=== PATIENT | female | born 1960 | race Caucasian/White ===

== ENCOUNTER 2019-12-05 11:37 | Day surgery (SDC) | payer OTHER, SELFPAY ==
[2019-12-05] VITALS (13 sets, daily range): BP systolic 95–136; BP diastolic 63–83; PULSE 49–78; RESP 16–18; TEMP 36.6–36.8; O2SAT 93–100; BMI 24.5
--- NOTE | 2019-12-05 11:50 | ED_ITS ---
Entered by Yuliya Krause, acting as scribe for HPI - Abdominal Pain General: Chief Complaint: Abdominal Pain Stated Complaint: Abd pain Time Seen by Provider: 12/05/19 11:49 Source: patient Mode of arrival: ambulatory Limitations: no limitations History of Present Illness: HPI narrative: 59 yo Female presents to ED with complaint of abdominal pain. Pt states that her pain is in her right lower abdomen. Pt states that her pain started on and has worsened since then. Pt states pain is now more localized to the right lower quadrant. Pt was seen at the urgent care clinic and sent to the ED because she had some blood in her urine and needed at CT scan. MD elicited complaint: abdominal pain Onset (ago): day(s) (2 ()) Location: RLQ Pain scale (0-10): 5 Quality: aching Associated Symptoms: Denies diarrhea, fever(s), nausea and vomiting Related Data: Date of Last Menstrual Period: 12/02/14 Review of Systems General: Reports: 10 or more systems reviewed and unremarkable except in HPI and below Const: Denies: fever GI: Reports: abdominal pain; Denies: nausea, vomiting or diarrhea PFSH ED PFSH: Statuses (acute, chronic, etc) shown below reflect problem list status as previously entered and may not be historically accurate Medical History (Updated 12/05/19 @ 14:34 by Yoni Allen DO) No pertinent past medical history (Acute) Social History Smoking and tobacco status: never smoked Female Reproductive History: Date of last menstrual period: 12/02/14 Physical Exam Const: COMMON NORMALS: no apparent distress, average body habitus, oriented x3, no limitations, healthy appearing, alert and well nourished HENMT: COMMON NORMALS: normocephalic, head/scalp atraumatic, hearing grossly normal bilaterally, external ears normal, EAC's normal, TM's normal bilaterally, external nose normal, nasal mucous membranes and turbinates normal, moist oral mucous membranes, oropharynx normal, dentition normal and gingiva normal HEAD & SCALP: normocephalic and atraumatic NOSE: external nose normal and nasal mucous membranes and turbinates normal EXTERNAL EAR: Yes external ears normal EXTERNAL AUDITORY CANAL: EAC's normal TYMPANIC MEMBRANE: TM's normal bilaterally Eye: COMMON NORMALS: PERRL, EOMs intact bilaterally, conjunctivae normal, no scleral icterus, no papilledema, normal visual rosenbaum by confrontation and fundi normal bilaterally CONJUNCTIVA: Yes conjunctivae normal PUPIL: Yes PERRL DIRECT OPHTHALMOSCOPY: Yes no papilledema and Yes fundi normal bilaterally Neck/C-Spine: COMMON NORMALS: full ROM, no lymphadenopathy, supple, no men ingeal signs, no JVD, thyroid normal and no carotid bruits THYROID: thyroid normal Chest: COMMONS NORMALS: inspection of chest normal and palpation of chest normal Resp: COMMON NORMALS: normal respiratory effort, no retractions, no use of accessory muscles, clear to auscultation bilaterally and percussion normal AUSCULTATION: clear to auscultation bilaterally PERCUSSION: percussion normal Cardio: COMMON NORMALS: no JVD, regular rate, regular rhythm, S1 normal heart sound, S2 normal heart sound, no gallops, no clicks, no murmurs, no rub and peripheral pulses 2+ throughout RATE: regular rate RHYTHM: regular rhythm HEART SOUNDS: S1 normal and S2 normal PERIPHERAL PULSES: pulses 2+ throughout GI: COMMON NORMALS: soft to palpation, no hepatosplenomegaly, no masses and no bruits; negative for normal to inspection, nondistended, normoactive bowel sounds and negative for non-tender AUSCULTATION: Yes hypoactive bowel sounds PALPATION: Yes soft, Yes tender Details: RLQ and Yes no hepatosplenomegaly : COMMON NORMALS: Yes no CVA tenderness and Yes external appearance normal BLADDER/KIDNEY EXAM: Yes no CVA tenderness Back/Pelvis: COMMON NORMALS: no CVA tenderness, thoracic and lumbar spine normal to inspection, no thoracic nor lumbar tenderness, thoraco-lumbar ROM normal and straight leg raise negative bilaterally Extremity: COMMON NORMALS: normal to inspection, full ROM, normal capillary refill, no joint enlargement, no clubbing, cyanosis or edema, no calf tenderness and no pedal edema Neuro: COMMON NORMALS: oriented x3 SENSORIUM/ORIENTATION: Yes alert MENINGEAL SIGNS: Yes no meningeal signs Skin: COMMON NORMALS: no rashes or lesions noted, no wounds, skin turgor normal, no jaundice, no petechiae and no mottling GENERAL SKIN EXAM: no rashes or lesions noted and turgor normal Procedures Intubation Mg Given: 20 Mg Given: 200 Course Vital Signs: Vital signs: Vital Signs Temperature 98.2 F 12/05/19 11:41 Pulse Rate 70 12/05/19 12:52 Respiratory Rate 16 12/05/19 12:52 Blood Pressure 118/78 12/05/19 12:52 Pulse Oximetry 96 12/05/19 12:52 MDM - Abdominal Pain Lab Data: Labs: Lab Results 12/05/19 12/05/19 12/05/19 Range/Units 12:24 12:24 12:24 WBC 10.4 H (4.0-10.0) 10^3/ uL RBC 4.78 (4.1-5.3) 10^6/u L Hgb 14.1 (11.5-15.3) g/dL Hct 43.4 (37.0-47.0) % MCV 90.8 (81-99) fL MCH 29.5 (28.0-34.0) pg MCHC 32.5 (30.0-36.0) g/dL RDW 13.2 (12.1-15.1) % Plt Count 232 (130-400) 10^3/c mm MPV 11.3 H (7.4-10.4) fL Neut % (Auto) 73.3 % Lymph % (Auto) 19.1 % [place] % (Auto) 5.9 % Eos % (Auto) 0.8 % Baso % (Auto) 0.4 % Neut # (Auto) 7.6 (1.8-7.7) 10^3/u L Lymph # (Auto) 2.0 (0.8-4.8) 10^3/u L [place] # (Auto) 0.6 (0.2-0.9) 10^3/u L Eos # (Auto) 0.1 (0.0-0.8) 10^3/u L Baso # (Auto) 0.0 (0.0-0.1) 10^3/u L Nucleated RBC % (a uto) 0 % Nucleated RBCs # 0.0 /100WBC Sodium 135 L (136-145) mmol/L Potassium 4.2 (3.5-5.1) mmol/L Chloride 96 L (98-107) mmol/L Carbon Dioxide 26 (22-29) mmol/L Anion Gap 17.2 (5-19) BUN 16 (8-23) mg/dL Creatinine 0.8 (0.5-0.9) mg/dL GFR Calculation 72.9 L (90-130) mL/min Glucose 99 (74-106) mg/dL Calcium 10.3 H (8.8-10.2) mg/Dl Total Bilirubin 0.5 (0.15-1.2) mg/dL AST 21 (0-32) U/L ALT 25 (0-33) U/L Alkaline Phosphata se 107 H (35-105) IU/L Total Protein 7.8 (6.6-8.7) g/dL Albumin 4.5 (3.5-5.2) g/dL Globulin 3.3 (1.3-4.6) g/dL Lipase 12 L (13-60) U/L Discharge Plan Discharge Patient Disposition: Admitted As Inpatient Clinical Impression: Acute appendicitis Condition: Stable Prescriptions: No Action atorvastatin [Lipitor] 10 mg tablet 10 mg PO ONCE RF: 0 Referrals: Simba Streeter [Family Provider] - Connie Mitchell MD [Primary Care Provider] - Patient Instructions: Appendicitis (GEN) Coding Level of Care Code ED Commercial Loan Specialist for Chg Fwd Exam Problem Focused The documentation recorded by the Jimi harris Carmen, accurately reflects the service I personally performed and the decisions made by , Yoni Allen, DO
--- NOTE | 2019-12-05 11:56 | PC.NURSE ---
Patient was seen in urgent care today and was noted to have blood in urine. Lab to send copy to hospital. Patient states was sent here for evaluation.
--- NOTE | 2019-12-05 12:02 | CTR_ITS ---
PROCEDURE INFORMATION: Exam: CT Abdomen And Pelvis With Contrast Exam date and time: 12/05/2019 12:09 PM Age: 59 years old Clinical indication: Abdominal pain; Localized; Right lower quadrant (rlq); Additional info: Rlq abd pain TECHNIQUE: Imaging protocol: Computed tomography of the abdomen and pelvis with intravenous contrast. Total DLP: 876.08 mGy-cm Radiation optimization: All CT scans at this facility use at least one of these dose optimization techniques: automated exposure control; mA and/or kV adjustment per patient size (includes targeted exams where dose is matched to clinical indication); or iterative reconstruction. Contrast material: OMNI 300; Contrast volume: 95 ml; Contrast route: L AC IV; COMPARISON: No relevant prior studies available. FINDINGS: Liver: Normal. No mass. Gallbladder and bile ducts: Normal. No calcified stones. No ductal dilation. Pancreas: Normal. No ductal dilation. Spleen: Normal. No splenomegaly. Adrenals: Normal. No mass. Kidneys and ureters: Normal. No hydronephrosis. Stomach and bowel: Unremarkable. No obstruction. No mucosal thickening. Appendix: Proximal half of the appendix is enlarged measuring 11 mm in diameter. Prominent proximal appendiceal wall measuring 3-4 mm thick with robust enhancement. Appearance worrisome for early/mild appendicitis. No significant surrounding inflammation or fluid at this time. Intraperitoneal space: Unremarkable. No free air. No significant fluid collection. Vasculature: Unremarkable. No abdominal aortic aneurysm. Lymph nodes: Unremarkable. No enlarged lymph nodes. Bladder: Unremarkable as visualized. Reproductive: Unremarkable as visualized. Bones/joints: L5-S1 degenerative disc disease, chronic. Soft tissues: Unremarkable. CT/CT abdomen pelvis w con* [id number] IMPRESSION: 1)Proximal half of the appendix is enlarged measuring 11 mm in diameter. Prominent proximal appendiceal wall measuring 3-4 mm thick with robust enhancement. Appearance worrisome for early/mild appendicitis. Radiation Dose CTDIVOL = (mGy): DLP = 876.08 (mGy-cm)
[2019-12-05] MEDS: sodium chloride 0.9% 1,000 ML 999 ML IV (12:45)
[2019-12-05 13:07] LABS: Basophils % 0.4 %; Eosinophils # 0.1 10^3/uL (0.0-0.8); Eosinophils % 0.8 %; Hematocrit 43.4 % (37.0-47.0); Hemoglobin 14.1 g/dL (11.5-15.3); Lymphocytes % 19.1 %; Mean Corpuscular HGB Conc 32.5 g/dL (30.0-36.0); Mean Corpuscular Hemoglobin 29.5 pg (28.0-34.0); Mean Corpuscular Volume 90.8 fL (81-99); Mean Platelet Volume 11.3 fL (7.4-10.4); Monocytes # 0.6 10^3/uL (0.2-0.9); Monocytes % 5.9 %; Neutrophils # 7.6 10^3/uL (1.8-7.7); Neutrophils % 73.3 %; Nucleated Red Blood Cells % 0 %; Platelet Count 232 10^3/cmm (130-400); Red Blood Count 4.78 10^6/uL (4.1-5.3); Red Cell Distribution Width 13.2 % (12.1-15.1); White Blood Count 10.4 10^3/uL (4.0-10.0)
[2019-12-05 13:14] LABS: Lipase 12 U/L (13-60)
[2019-12-05 13:15] LABS: Alanine Aminotransferase 25 U/L (0-33); Albumin Level 4.5 g/dL (3.5-5.2); Alkaline Phosphatase 107 IU/L (35-105); Anion Gap 17.2 (5-19); Aspartate Amino Transferase 21 U/L (0-32); Blood Urea Nitrogen 16 mg/dL (8-23); Calcium 10.3 mg/Dl (8.8-10.2); Carbon Dioxide 26 mmol/L (22-29); Chloride 96 mmol/L (98-107); Globulin 3.3 g/dL (1.3-4.6); Glomerular Filtration Rate 72.9 mL/min (90-130); Glucose 99 mg/dL (74-106); Potassium 4.2 mmol/L (3.5-5.1); Sodium 135 mmol/L (136-145); Total Bilirubin 0.5 mg/dL (0.15-1.2); Total Protein 7.8 g/dL (6.6-8.7)
[2019-12-05] MEDS: ondansetron 2 mg/ML SDV 2 mL 4 MG IVP (14:40)
[2019-12-05] MEDS: morphine 4 mg/mL SDV 1 mL IVP (14:45)
--- NOTE | 2019-12-05 15:25 | ANES.PREANES ---
Pre-Anesthetic Assessment Pre-Anesthetic Assessment: Height/Weight: Height 1.74 m Weight 74.389 kg Temp Pulse Resp BP Pulse Ox 98.2 F 67 18 132/82 95 12/05/19 11:41 12/05/19 15:12 12/05/19 14:45 12/05/19 15:12 12/05/19 15:12 Proposed Procedure: Operation Date: 12/05/19 16:30 Proposed Procedures p Laparoscopic Appendectomy(Not Applicable) - Evan Pichardo MD Last intake: Intake Last Liquid Date 12/05/19 Last Liquid Time 08:30 Last Solid Date 12/05/19 Last Solid Time 08:30 Social: Social History: No alcohol and No tobacco Exam: Pre-Anes Outpt Exam: alert, oriented x 3, clear to auscultation bilaterally and regular rate & rhythm Airway: Submandibular: WNL Cervical ROM: WNL MP: 1 Dentition: Full History/ROS: No significant history except as noted Pulmonary: Pulmonary: None reported CV/HEM: CV/HEM: None reported Anesthetic Plan: ASA status: E Anesthesia: Anesthesia Evaluation and General Risk of > 500 ml blood loss (7ml/kg in children): No PFSH Anesthesia PFSH: Medical History (Updated 12/05/19 @ 15:38 by Evan Pichardo MD) Acute appendicitis (Acute) Hypercholesterolemia (Acute) Surgical History (Updated 12/05/19 @ 15:32 by Evan Pichardo MD) H/O section (Acute) H/O colonoscopy (Acute) Social History Smoking and tobacco status: never smoked Female Reproductive History: Date of last menstrual period: 12/02/14 Data Anesthesia Labs: Other Labs: Laboratory Results - last 48 hr 12/05/19 12/05/19 12/05/19 12:24 12:24 12:24 WBC 10.4 H RBC 4.78 Hgb 14.1 Hct 43.4 MCV 90.8 MCH 29.5 MCHC 32.5 RDW 13.2 Plt Count 232 MPV 11.3 H Neut % (Auto) 73.3 Lymph % (Auto) 19.1 [place] % (Auto) 5.9 Eos % (Auto) 0.8 Baso % (Auto) 0.4 Neut # (Auto) 7.6 Lymph # (Auto) 2.0 [place] # (Auto) 0.6 Eos # (Auto) 0.1 Baso # (Auto) 0.0 Nucleated RBC % (a uto) 0 Nucleated RBCs # 0.0 Sodium 135 L Potassium 4.2 Chloride 96 L Carbon Dioxide 26 Anion Gap 17.2 BUN 16 Creatinine 0.8 GFR Calculation 72.9 L Glucose 99 Calcium 10.3 H Total Bilirubin 0.5 AST 21 ALT 25 Alkaline Phosphata se 107 H Total Protein 7.8 Albumin 4.5 Globulin 3.3 Lipase 12 L Cardiac Studies: No Data to Display
--- NOTE | 2019-12-05 15:32 | PM.HP ---
Providers/Chief Complaint Admitting Physician: Evan Pichardo Primary Care Provider: Dr. Streeter Chief Complaint: Abd pain History of Present Illness Ashley Espino is a 59 year old female who developed generalized abdominal pain 48 hours ago but now is localized to the right lower quadrant. Patient denies any nausea, vomiting. No fevers but has some chills. Patient denies any constipation or diarrhea. No similar episodes in the past. Review of Systems Const: Denies: fever, chills, change in weight or fatigue Eyes: Denies: change in vision ENMT: Denies: painful swallowing Card: Denies: chest pain Resp: Denies: shortness of breath GI: Denies: abdominal pain or blood in stool : Denies: painful urination Skin/Breast: Denies: rash, nipple discharge or breast mass/lump Neuro: Denies: seizure-like activity Roe/Lymph: Denies: easy bruising Medications/Allergies Home Medications Medication Instructions Recorded Confirmed Last Taken Type calcium carbonate [Calcium 500] 1,000 mg PO DAILY 12/05/19 12/05/19 12/03/19 History multivitamin [Multiple Vitamins] 1 tab PO DAILY 12/05/19 12/05/19 12/03/19 History Allergies Allergy/AdvReac Type Severity Reaction Status Date / Time amoxicillin Allergy Mild swelling/it Verified 12/05/19 10:18 berta Additional Medication Information Additional Medication Information: Atorovastatin 10mg PFSH Acute PFSH: Statuses (acute, chronic, etc) shown below reflect problem list status as previously entered and may not be historically accurate Medical History Hypercholesterolemia (Acute) Surgical History H/O section (Acute) H/O colonoscopy (Acute) Social History Smoking and tobacco status: never smoked Female Reporductive History: Date of last menstrual period: 12/02/14 Vitals/I&O/Wt Last Vital Signs Temp 98.2 F 12/05/19 11:41 Pulse 67 12/05/19 15:12 Resp 18 12/05/19 14:45 BP 132/82 12/05/19 15:12 Pulse Ox 95 12/05/19 15:12 Weight last 48 hrs Weight 164 lb Physical Exam Const: COMMON NORMALS: no apparent distress ORIENTATION/CONSCIOUSNESS: Yes oriented to person, Yes oriented to place and Yes oriented to time HENMT: COMMON NORMALS: normocephalic HEAD & SCALP: normocephalic Eye: GENERAL EYE: normal appearance of both eyes Resp: COMMON NORMALS: clear to auscultation bilaterally AUSCULTATION: clear to auscultation bilaterally Cardio: COMMON NORMALS: S1 normal heart sound and S2 normal heart sound HEART SOUNDS: S1 normal and S2 normal GI: COMMON NORMALS: soft to palpation PALPATION: Yes soft and Yes tender Details: LLQ (positive Rovsing's sign) and RLQ Neuro: SENSORIUM/ORIENTATION: Yes oriented to person, Yes oriented to place and Yes oriented to time Skin: COMMON NORMALS: no rashes or lesions noted GENERAL SKIN EXAM: no rashes or lesions noted Data Imaging^: CT Abd/Pel: Radiologist's impression: Liver: Normal. No mass. Gallbladder and bile ducts: Normal. No calcified stones. No ductal dilation. Pancreas: Normal. No ductal dilation. Spleen: Normal. No splenomegaly. Adrenals: Normal. No mass. Kidneys and ureters: Normal. No hydronephrosis. Stomach and bowel: Unremarkable. No obstruction. No mucosal thickening. Appendix: Proximal half of the appendix is enlarged measuring 11 mm in diameter. Prominent proximal appendiceal wall measuring 3-4 mm thick with robust enhancement. Appearance worrisome for early/mild appendicitis. No significant surrounding inflammation or fluid at this time. Intraperitoneal space: Unremarkable. No free air. No significant fluid collection. Vasculature: Unremarkable. No abdominal aortic aneurysm. Lymph nodes: Unremarkable. No enlarged lymph nodes. Bladder: Unremarkable as visualized. Reproductive: Unremarkable as visualized. Bones/joints: L5-S1 degenerative disc disease, chronic. Soft tissues: Unremarkable. IMPRESSION: 1)Proximal half of the appendix is enlarged measuring 11 mm in diameter. Prominent proximal appendiceal wall measuring 3-4 mm thick with robust enhancement. Appearance worrisome for early/mild appendicitis. A&P Assessment and plan (1) Acute appendicitis: 59-year-old female with right lower quadrant pain and CT scan showing acute appendicitis. Hemodynamically stable with no evidence of peritonitis Plan for laparoscopic possible open appendectomy My procedure Status: Acute Qualifiers: Acute appendicitis type: with localized peritonitis Code(s): K35.80 - Unspecified acute appendicitis Attestations Medical Necessity Statement*: Acute appendicitis requiring surgery Coding Level of Care Code Acute Commission Associate for [facility] Fwd Diagnoses Acute appendicitis K35.80 Acute appendicitis type: with localized peritonitis
[2019-12-05] MEDS: sodium chloride 0.9% 1,000 ML 30 ML IV (15:44)
[2019-12-05] MEDS: clindamycin 600 MG/50 ML PREMIX 100 MG IV (15:45)
--- NOTE | 2019-12-05 16:47 | PM.PACU ---
PACU note Post-Anesthesia Exam: somnolent, arousable, vital signs stable and other (no nausea/vomiting) Disposition: discharged
--- NOTE | 2019-12-05 17:00 | PM.OP ---
Operative Report Post-Operative Note: Date of procedure: 12/05/19 Preop Diagnosis: Acute appendicitis Post-op diagnosis: same Procedure Done: Laparoscopic appendectomy Specimens removed/disposition: Appendix Surgeon: Evan Pichardo Anesthesia: general Estimated blood loss (mL): 25 Operative Report: Procedure: The patient was taken to the Operating Room and intubated under general anesthesia after antibiotic had been administered. Using a 15 blade, a 1-cm infraumbilical incision was made and using open Hansel technique, the peritoneal cavity was entered. A 12mm port with balloon was placed and 14 mm of pneumoperitoneum was created and 10-mm 30 degree scope was introduced. Two separate 5mm ports were placed in the left and right lower quadrant under direct visualization. The appendix was noted in the right lower quadrant and appeared acutely inflamed with suppuration.. Using [place] forceps, an opening was made in the mesoappendix near the base of the appendix. An Endo CHOLO stapler 45mm long 3.5mm blue load x 2 was introduced to divide the appendix at it's base. Using electrocautery, the mesoappendix including the appendicular artery was divided. There was bleeding from the appendicular artery which was controlled with cautery. There was no bleeding noted in the and and the staple line appeared intact. The right lower quadrant was irrigated with saline and an EndoCatch bag was introduced to remove the appendix. All three ports were removed under direct visualization and there was no bleeding noted on the port sites. The fascia at the umbilical port was closed using figure of eight 0-Vicryl sutures and subcutaneous tissue was approximated using 3-0 Vicryl and skin at all 3 port sites was closed using 4-0 Monocryl and Dermabond. 10cc of 0.5% Marcaine was infiltrated around the incisions. Coding Level of Care Code Acute Ice Cream Truck Driver for Torsten Cedeno
[2019-12-05] MEDS: HYDROcodone-acetaminophen 5-325 mg Tablet 1 TAB PO (17:37)
--- NOTE | 2019-12-05 18:04 | SUR.PHASEII ---
2600 PT ASSISTED WITH DRESSING , IV OUT PT AT BEDSIDE PT NOW UP TO BR THEN TO CAR PER W/C WITH RN PT AWAKE ALERT TALKATIVE WITH NO DISTRESS SEE PO PAIN MED GIVEN EARLER.
== END 2019-12-05 17:45 | disposition home or self-care (01) ==
LOC: ER 14:34 → OR 14:48
PROVIDERS: Emergency Provider Family Medicine; Family Provider Family Medicine; Visit Provider Surgery
PROC: 0DTJ4ZZ Resection of Appendix, Percutaneous Endoscopic Approach (ICD-10-PCS; CPT 44970; principal; 2019-12-05 16:30)
DX: K35.80 Unspecified acute appendicitis (principal)
CPT/HCPCS: 44970; 74177; 80053; 81003; 83690; 85025; 88304; 99281; J0131; J1100; J1885; J2270; J2405; J2704; J2710; J3010; J3490; J7030; Q9967; S0030

== ENCOUNTER 2020-02-02 09:17 | Outpatient (CLI) | payer OTHER, SELFPAY ==
--- NOTE | 2020-02-02 09:37 | MM_ITS ---
WS: [id number] SCREENING DIGITAL MAMMOGRAM WITH CAD HISTORY: SCREENING COMPARISON: 09/15/2018 and 09/02/2017 Bilateral CC and MLO views submitted. Computer aided detection analyzed. Breast composition: There are scattered areas of fibroglandular density. No suspicious masses, microc alcifications or architectural distortion. MM/[id number] IMPRESSION: BI-RADS: 1-Negative FOLLOW UP: 1 Year Follow-up
== END 2020-02-02 09:18 | disposition home or self-care (01) ==
PROVIDERS: Family Provider Family Medicine; PCP Family Medicine; Visit Provider Family Medicine
DX: Z12.31 Encounter for screening mammogram for malignant neoplasm of breast (principal)
CPT/HCPCS: 77067

== ENCOUNTER 2021-04-17 08:43 | Outpatient (CLI) | payer OTHER, SELFPAY ==
--- NOTE | 2021-04-17 08:48 | MM_ITS ---
WS: [id number] BILATERAL SCREENING DIGITAL MAMMOGRAM WITH CAD HISTORY: SCREENING COMPARISON: 02/02/2020 and 09/15/2018 Bilateral CC and MLO views submitted. Computer aided detection analyzed. Breast composition: There are scattered areas of fibroglandular density. No suspicious masses, microc alcifications or architectural distortion. MM/[id number] IMPRESSION: BI-RADS: 1-Negative FOLLOW UP: 1 Year Follow-up
== END 2021-04-17 08:44 | disposition home or self-care (01) ==
LOC: RADSHAW 08:46
PROVIDERS: Family Provider Family Medicine; PCP Family Medicine; Visit Provider Family Medicine
DX: Z12.31 Encounter for screening mammogram for malignant neoplasm of breast (principal)
CPT/HCPCS: 77067

== ENCOUNTER 2022-05-04 08:43 | Outpatient (CLI) | payer OTHER, SELFPAY ==
--- NOTE | 2022-05-04 08:49 | MM_ITS ---
WS: [id number] BILATERAL 3D TOMOSYNTHESIS DIGITAL SCREENING MAMMOGRAPHY WITH CAD CLINICAL INFORMATION: SCREENING HISTORY: Screening mammogram. No current complaints. COMPARISON: April 17, 2021 TECHNIQUE: Bilateral CC and MLO views. FINDINGS: Scattered fibroglandular densities bilaterally. No suspicious focal mass, asymmetry, calcifications, or architectural distortion. No evidence of malignancy. MM/[place] [id number] IMPRESSION: BI-RADS: 1-Negative FOLLOW UP: 1 Year Follow-up Recommend return to annual screening mammography.
== END 2022-05-04 08:44 | disposition home or self-care (01) ==
PROVIDERS: Family Provider Family Medicine; PCP Family Medicine; Visit Provider Family Medicine
DX: Z12.31 Encounter for screening mammogram for malignant neoplasm of breast (principal)
CPT/HCPCS: 77063; 77067

== ENCOUNTER 2023-05-07 09:24 | Outpatient (CLI) | payer MEDICARE, SELFPAY ==
--- NOTE | 2023-05-07 09:50 | MM_ITS ---
WS: [id number] BILATERAL 3D TOMOSYNTHESIS DIGITAL SCREENING MAMMOGRAPHY WITH CAD CLINICAL INFORMATION: SCREENING HISTORY: Screening mammogram. No current complaints. COMPARISON: 2021 TECHNIQUE: Bilateral CC and MLO views. FINDINGS: Scattered fibroglandular densities bilaterally. No suspicious focal mass, asymmetry, calcifications, or architectural distortion. No evidence of malignancy. Stable subareolar nodular breast tissue anter ior LEFT breast. This is stable since 2015 MM/[id number] IMPRESSION: BI-RADS: 2-Benign FOLLOW UP: 1 Year Follow-up Recommend return to annual screening mammography.
== END 2023-05-07 09:25 | disposition home or self-care (01) ==
PROVIDERS: PCP Family Medicine; Visit Provider Family Medicine
DX: Z12.31 Encounter for screening mammogram for malignant neoplasm of breast (principal)
CPT/HCPCS: 77063; 77067

== ENCOUNTER → 2023-06-05 10:53 | Outpatient (BNVA) | payer MEDICARE, SELFPAY | PROVIDERS: PCP Family Medicine; Visit Provider Nurse Practitioner Family | DX: L57.8 Other skin changes due to chronic exposure to nonionizing radiation (principal); Z12.83 Encounter for screening for malignant neoplasm of skin; L85.3 Xerosis cutis; D22.62 Melanocytic nevi of left upper limb, including shoulder; L81.4 Other melanin hyperpigmentation | CPT/HCPCS: 99213 ==

== ENCOUNTER → 2023-12-06 09:32 | Outpatient (BNVA) | payer MEDICARE, SELFPAY | PROVIDERS: PCP Family Medicine; Visit Provider Nurse Practitioner Family | DX: Z85.828 Personal history of other malignant neoplasm of skin (principal); L57.8 Other skin changes due to chronic exposure to nonionizing radiation; D22.4 Melanocytic nevi of scalp and neck; L81.4 Other melanin hyperpigmentation | CPT/HCPCS: 99213 ==

== ENCOUNTER 2024-05-08 08:45 | Outpatient (CLI) | payer MEDICARE, SELFPAY ==
--- NOTE | 2024-05-08 08:53 | MM_ITS ---
WS: [id number] BILATERAL SCREENING DIGITAL TOMOSYNTHESIS MAMMOGRAM WITH CAD HISTORY: SCREENING COMPARISON: 05/07/2023, 05/04/2022 Bilateral CC and MLO views with tomosynthesis and synthetic mammography submitted. Computer aided det ection analyzed. Breast composition: There are scattered areas of fibroglandular density. No suspicious masses, microc alcifications or architectural distortion. MM/[id number] IMPRESSION: BI-RADS: 1-Negative FOLLOW UP: 1 Year Follow-up
== END 2024-05-08 08:46 | disposition home or self-care (01) ==
LOC: RAD 08:46
PROVIDERS: PCP Family Medicine; Visit Provider Family Medicine
DX: Z12.31 Encounter for screening mammogram for malignant neoplasm of breast (principal); R92.323 Mammographic fibroglandular density, bilateral breasts
CPT/HCPCS: 77063; 77067

== ENCOUNTER → 2024-06-23 07:48 | Outpatient (BNVA) | payer MEDICARE, SELFPAY | PROVIDERS: PCP Family Medicine; Visit Provider Podiatrist Foot & Ankle Surgery | DX: M79.671 Pain in right foot (principal); M79.672 Pain in left foot; M20.21 Hallux rigidus, right foot; M20.22 Hallux rigidus, left foot; M19.072 Primary osteoarthritis, left ankle and foot; M20.41 Other hammer toe(s) (acquired), right foot; M20.42 Other hammer toe(s) (acquired), left foot; M19.079 Primary osteoarthritis, unspecified ankle and foot | CPT/HCPCS: 73630; 99203 ==

== ENCOUNTER 2025-05-10 09:28 | Outpatient (CLI) | payer MEDICARE, SELFPAY ==
--- NOTE | 2025-05-10 09:30 | MM_ITS ---
WS: [id number] BILATERAL SCREENING DIGITAL TOMOSYNTHESIS MAMMOGRAM WITH CAD HISTORY: SCREEN COMPARISON: 05/08/2024, 05/07/2023, 05/04/2022 Bilateral CC and MLO views with tomosynthesis and synthetic mammography submitted. Computer aided detection analyzed. Breast composition: There are scattered areas of fibroglandular density. No suspicious masses, microcalcifications or architectural distortion. Stable nodule in the anterior LEFT breast. MM/MM scr BI tomosynthesis [id number] IMPRESSION: BI-RADS: 2 - Benign. FOLLOW UP: 1 Year Follow-up
== END 2025-05-10 09:29 | disposition home or self-care (01) ==
LOC: RAD 09:29
PROVIDERS: PCP Family Medicine; Visit Provider Family Medicine
DX: Z12.31 Encounter for screening mammogram for malignant neoplasm of breast (principal); R92.323 Mammographic fibroglandular density, bilateral breasts; N64.89 Other specified disorders of breast
CPT/HCPCS: 77063; 77067